=== PATIENT | female | born 1995 | race African-American/Black ===

== ENCOUNTER 2017-07-12 08:09 | Inpatient (IN) | payer OTHER ==
[2017-07-12] MEDS ORDERED: Penicillin G Potassium IV* 5,000,000 UNITS in NS 0.9% 100 ML* 100 ML IVPB ONE ×2 (08:41→12:00)
[2017-07-12 09:05] LABS: ABS Basophils 0 10^3/ul (0-0.2); ABS Eosinophils 0.1 10^3/ul (0-0.6); ABS Neutrophils 7.5 10^3/ul (1.5-7.7); ABS Nucleated RBC 0 10^3/ul; Hematocrit 37 % (35-47); Hemoglobin 12.7 g/dl (12.0-16.0); Lymphocyte % 18.4 % (25-47); Mean Corpuscular HGB Conc 34 g/dl (31-36); Mean Corpuscular Hemoglobin 32 pg (27-31); Mean Corpuscular Volume 93 fL (80-97); Mean Platelet Volume 8 um3 (7.4-10.4); Nucleated Red Blood Cells % 0; Platelet Count 152 10^3/ul (150-450); Red Blood Count 3.95 10^6/ul (4.0-5.4); Red Cell Distribution Width 13 % (10.5-15); White Blood Count 10.6 10^3/ul (3.5-10.8)
[2017-07-12] MEDS ORDERED: Dinoprostone* 10 MG VAG.SUPP VAGINAL ONE ×2 (09:32→22:33)
[2017-07-12] MEDS ORDERED: Nalbuphine* 20 MG/ML 1 ML VIAL IV PRN (22:34)
[2017-07-12] MEDS ORDERED: Promethazine INJ(RESTRICTED)* 25 MG/ML 1 ML VIAL IV PRN (22:36)
[2017-07-13] MEDS ORDERED: Misoprostol TAB* 100 MCG ONE ×2 (12:35→17:48)
[2017-07-13] MEDS ORDERED: Misoprostol TAB* 100 MCG VAGINAL ONE (17:44)
[2017-07-14] MEDS ORDERED: Oxytocin in LR* 20 UNITS/1,000 ML BAG IVPB SCH (01:00)
[2017-07-14] MEDS ORDERED: ceFOXitin 2 GM IVPREMIX* 2 GM/50 ML BAG ONE (08:06)
[2017-07-14] MEDS ORDERED: Sodium Citrate/Citric Acid* 15 ML UDC ONE (08:06)
[2017-07-14] MEDS ORDERED: Morphine PF AMP (0.5MG/ML)* 5 MG/10 ML AMP ONE (12:43)
[2017-07-14] MEDS ORDERED: OXYTOCIN* 10 UNITS/ML 1 ML VIAL ONE (12:43)
[2017-07-14] MEDS ORDERED: Dexamethasone IV* 4 MG/ML 1 ML (4 MG) ONE (12:44)
[2017-07-14] MEDS ORDERED: Ondansetron INJ* 2 MG/ML VIAL ONE (12:44)
[2017-07-14] MEDS ORDERED: Phenylephrine IV* 40 MCG/ML 10 ML SYRINGE ONE (12:49)
[2017-07-14] MEDS ORDERED: diPHENhydraMINE IV* 50 MG/ML 1 ml VIAL (BENADRYL) IV PRN (14:24)
[2017-07-14] MEDS ORDERED: oxyCODONE/Acetamin 5/325 MG* TAB PO PRN (14:24)
[2017-07-14] MEDS ORDERED: Nalbuphine* 20 MG/ML 1 ML VIAL IV PRN ×3 (14:24→14:28)
[2017-07-14] MEDS ORDERED: fentaNYL* 50 MCG/ML 2 ML VIAL (100 MCG VIAL) IV PRN (14:24)
[2017-07-14] MEDS ORDERED: Acetaminophen IV 1GM/100ML * 1,000 MG/100 ML VIAL IVPB ONE (14:24)
[2017-07-14] MEDS ORDERED: PROCHLORPERAZINE INJ 5 MG/ML 2 ML VIAL IV PRN (14:24)
[2017-07-14] MEDS ORDERED: Naloxone* 0.4 MG/ML 1 ML VIAL IV PRN ×2 (14:24→14:28)
[2017-07-14] MEDS ORDERED: Ondansetron INJ* 2 MG/ML VIAL IV PRN (14:28)
[2017-07-14] MEDS ORDERED: oxyCODONE TAB* 5 MG TAB PO PRN (14:28)
[2017-07-14] MEDS ORDERED: Witch Hazel PAD* JAR TOPICAL PRN (14:47)
[2017-07-14] MEDS ORDERED: Ketorolac INJ* 30 MG/ML 1 ML VIAL IV ONE (15:00)
[2017-07-14] MEDS: Simethicone TAB* 80 MG TAB.CHEW PO SCH ×2 (18:30→21:44)
[2017-07-14] MEDS: Docusate CAP* 100 MG PO SCH (21:44)
[2017-07-14] MEDS: Ketorolac INJ* 30 MG/ML 1 ML VIAL IV SCH (21:45)
[2017-07-14] MEDS ORDERED: Acetaminophen TAB* 325 MG PO PRN (23:00)
[2017-07-15] MEDS: Ketorolac INJ* 30 MG/ML 1 ML VIAL IV SCH ×2 (04:47→05:27)
[2017-07-15] MEDS ORDERED: Ibuprofen TAB* 600 MG ONE (04:55)
[2017-07-15] MEDS: oxyCODONE/Acetamin 5/325 MG* TAB PO PRN ×4 (04:57→20:39)
[2017-07-15] MEDS: Simethicone TAB* 80 MG TAB.CHEW PO SCH ×4 (08:45→20:38)
[2017-07-15] MEDS: Docusate CAP* 100 MG PO SCH ×3 (08:45→20:38)
[2017-07-15] MEDS ORDERED: Ferrous Gluconate TAB* 324 MG TAB PO SCH (09:00)
[2017-07-15 09:16] LABS: Hematocrit 31 % (35-47); Hemoglobin 10.6 g/dl (12.0-16.0); Mean Corpuscular HGB Conc 34 g/dl (31-36); Mean Corpuscular Hemoglobin 32 pg (27-31); Mean Corpuscular Volume 92 fL (80-97); Mean Platelet Volume 8 um3 (7.4-10.4); Platelet Count 171 10^3/ul (150-450); Red Blood Count 3.36 10^6/ul (4.0-5.4); Red Cell Distribution Width 13 % (10.5-15); White Blood Count 19.8 10^3/ul (3.5-10.8)
[2017-07-15 10:11] LABS: ABS Basophils 0.1 10^3/ul (0-0.2); ABS Eosinophils 0.1 10^3/ul (0-0.6); ABS Lymphocytes 2.3 10^3/ul (1.0-4.8); ABS Monocytes 1.7 10^3/ul (0-0.8); ABS Neutrophils 15.6 10^3/ul (1.5-7.7); ABS Nucleated RBC 0 10^3/ul; Eosinophil % 0.4 % (0-6); Lymphocyte % 11.8 % (25-47); Nucleated Red Blood Cells % 0.1
[2017-07-15] MEDS: Ibuprofen TAB* 600 MG PO PRN ×3 (11:16→23:22)
--- NOTE | 2017-07-15 14:24 | OP ---
DATE OF OPERATION: 07/14/17 - ROOM #[id number]-115 DATE OF : [birth year] SURGEON: Samir Ly MD. COREMAKER: Nieves Guy CNM. ANESTHESIOLOGIST: Dr. Gaytan. ANESTHESIA: Spinal. PRE-OP DIAGNOSIS: 41 plus 6 weeks gestation with failed induction of labor. POST-OP DIAGNOSIS: 41 plus 6 weeks gestation with failed induction of labor. OPERATIVE PROCEDURE: Primary low-transverse section. ESTIMATED BLOOD LOSS: 800 cc. IV FLUIDS: 2100 cc lactated Ringer's. URINE OUTPUT: 200 cc. MATERIALS TO LAB: Cord blood. INDICATIONS: This patient was a 21-year-old 1 para 0 who presented 2 days ago at 41 plus 4 weeks gestation for induction of labor. The patient's course had been essentially uncomplicated. She underwent several doses of Cervidil and misoprostol over 48 hours with no significant improvement in her cervical dilation. After the 48 hours was complete, the patient desired to discontinue efforts at induction and proceed with section. She was extensively counseled and consent was signed. FINDINGS: Normal-appearing uterus, fallopian tubes, and ovaries. Delivery was productive of a 9 pound 1 ounce female with Apgars of 8 and 9. COMPLICATIONS: None. DESCRIPTION OF PROCEDURE: The risks, benefits, and alternatives were described to the patient and informed consent was obtained. The patient was taken to the operating room with IV running where spinal anesthesia was induced and found to be adequate. The patient was prepped and draped in the normal sterile fashion in the dorsal supine position with leftward tilt. A Pfannenstiel skin incision was made with a scalpel and this was carried down to the underlying fascia sharply. The fascia was then scored in the midline with the scalpel. The incision was extended using Mancuso scissors. The rectus muscles were dissected off the rectus fascia using blunt and sharp dissection. The rectus muscles were in the midline bluntly. The peritoneum was also entered bluntly. A bladder blade was placed. A bladder flap was created sharply using Metzenbaum scissors. A low transverse uterine incision was made with the scalpel. This was carried down to the amniotic cavity which was productive of clear fluid. The incision was extended with blunt traction. The head was elevated to the level of the incision without difficulty and delivered through the incision. With fundal pressure, the shoulders and body delivered without difficulty. The infant had excellent tone and cried immediately on delivery. The cord was doubly clamped and cut. The infant was then handed to the awaiting band sewer. Cord blood was collected. The placenta then delivered with manual extraction. The uterus was then exteriorized and cleared of all clots and debris. Uterine incision was reapproximated using 0 Polysorb in a running-locked fashion. A second layer of imbricating sutures of 0 Polysorb was also placed with good hemostasis. The posterior cul-de-sac was irrigated with saline. The uterus was then returned to the abdomen, and the incision was reinspected and noted to be hemostatic. The peritoneum was closed with 3-0 Polysorb in a running fashion. The fascia was closed with 0 Polysorb in a running fashion. The skin was then closed with 4-0 Monocryl in a subcuticular stitch. Mastisol and Steri- Strips were placed over the incision which was then covered with a sterile bandage. The patient tolerated the procedure well. Sponge, lap, and needle counts were correct x2. [id number]/[facility] #: [id number] [facility]
[2017-07-15] MEDS ORDERED: Ibuprofen TAB* 600 MG PO PRN (14:47)
[2017-07-16] MEDS: oxyCODONE/Acetamin 5/325 MG* TAB PO PRN ×4 (04:38→20:59)
[2017-07-16] MEDS: Penicillin G Potassium IV* 2,500,000 UNITS in NS 0.9% 100 ML* 100 ML IVPB SCH ×4 (07:57→08:00)
[2017-07-16] MEDS: Simethicone TAB* 80 MG TAB.CHEW PO SCH ×4 (09:21→20:07)
[2017-07-16] MEDS: Ibuprofen TAB* 600 MG PO PRN ×2 (09:22→16:51)
[2017-07-16] MEDS: Docusate CAP* 100 MG PO SCH ×3 (09:22→20:07)
[2017-07-16 10:57] LABS: Hematocrit 32 % (35-47); Hemoglobin 10.7 g/dl (12.0-16.0); Mean Corpuscular HGB Conc 34 g/dl (31-36); Mean Corpuscular Hemoglobin 32 pg (27-31); Mean Corpuscular Volume 93 fL (80-97); Mean Platelet Volume 8 um3 (7.4-10.4); Platelet Count 187 10^3/ul (150-450); Red Cell Distribution Width 13 % (10.5-15); White Blood Count 15.1 10^3/ul (3.5-10.8)
[2017-07-16 11:01] LABS: ABS Basophils 0 10^3/ul (0-0.2); ABS Eosinophils 0 10^3/ul (0-0.6); ABS Lymphocytes 0.7 10^3/ul (1.0-4.8); ABS Monocytes 1.6 10^3/ul (0-0.8); ABS Neutrophils 12.6 10^3/ul (1.5-7.7); ABS Nucleated RBC 0 10^3/ul; Eosinophil % 0.1 % (0-6); Lymphocyte % 4.9 % (25-47); Nucleated Red Blood Cells % 0
[2017-07-17] MEDS: Ibuprofen TAB* 600 MG PO PRN ×2 (00:45→11:27)
[2017-07-17] MEDS: oxyCODONE/Acetamin 5/325 MG* TAB PO PRN (05:50)
[2017-07-17 06:43] LABS: Urine Appearance Clear; Urine Blood 3+ (Negative); Urine Color Yellow; Urine Ketones Negative (Negative); Urine Protein Negative (Negative); Urine Specific Gravity 1.008 (1.010-1.030); Urine Urobilinogen Negative (Negative)
[2017-07-17] MEDS: Docusate CAP* 100 MG PO SCH (09:01)
[2017-07-17] MEDS: Simethicone TAB* 80 MG TAB.CHEW PO SCH (09:01)
[2017-07-17 10:01] VITALS: BP 99/62
== END 2017-07-17 12:21 | disposition home or self-care (01) | DRG 540 ==
LOC: MCHOBOUT 08:09 → MCHOB 08:51
PROVIDERS: ADMIT Midwife; ATTEND Midwife
PROC: 3E033VJ Introduction of Other Hormone into Peripheral Vein, Percutaneous Approach (ICD-10-PCS; 2017-07-14)
PROC: 10D00Z1 Extraction of Products of Conception, Low, Open Approach (ICD-10-PCS; principal; 2017-07-14 13:03)
DX: O61.0 Failed medical induction of labor (principal); O48.0 Post-term pregnancy; Z3A.42 42 weeks gestation of pregnancy; O99.824 Streptococcus B carrier state complicating childbirth; Z37.0 Single live birth
CPT/HCPCS: 36415; 81003; 81015; 85025; 86850; 86900; 86901; A9270-GY; J0694; J1100; J1885; J2300; J2405; J2540; J2550; J2590; S0191

== ENCOUNTER 2019-01-14 17:49 | Emergency (ER) | payer OTHER ==
[2019-01-14 18:49] VITALS: BP 119/86
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
== END 2019-01-14 20:24 | disposition home or self-care (01) ==
LOC: UCEAST 17:49
DX: R10.32 Left lower quadrant pain (principal); Z87.891 Personal history of nicotine dependence
CPT/HCPCS: 99211; G0463

== ENCOUNTER 2019-01-16 04:37 | Emergency (ER) | payer MEDICAID, OTHER ==
--- OUTSIDE RECORDS SUMMARY | 2019-01-16 04:49 | XMS REPORT | Continuity of Care Document ---
:1995 External Reference #:[id number] Author Name Samir Ly MD Address [address] [place] [address] Care Team Providers Name Role Phone Brianna Bhatia MD Care Team Information [employer] Unavailable Payers Date Identification Numbers Payment Provider Subscriber Policy Number: [id number] Medicaid [place] Princess Donaldson PayID: [id number] [address] [place] [id number] Problems Active Problems Provider Date H/O: section Nieves Guy CNM Onset: 07/14/2017 Resolved Problems Primigravida Nieves Guy CNM Onset: 11/22/2016 Resolved: 07/14/2017 Family History Date Family Member(s) Observation Comments Father A&W Mother A&W Children 1 First Daughter A&W First Brother A&W Second Brother A&W First Sister A&W Second Sister A&W Third Sister A&W Fourth Sister A&W Fifth Sister A&W Sixth Sister A&W Paternal Grandfather Unknown Paternal Grandmother Unknown Maternal Grandfather due to Cancer () Maternal Grandmother A&W Social History Type Date Description Comments Sex Unknown Education Highest level completed, 12th grade Marital Status Single Lives With Boyfriend Lives With Daughter Diet Healthy, Well Balanced Pets 1 cat Occupation [employer] Environmental Hazards Not exposed to any environmental hazards Environmental Hazards Low Lead Risk Cigarette Use Former Cigarette Smoker 3-5/day x 2 years. Quit for ETOH Use Denies alcohol use Recreational Drug Use Denies Drug Use Tobacco Use Start: Unknown Patient is a former End: Unknown smoker Smoking Status Reviewed: 01/15/19 Patient is a former smoker Exercise Type/Frequency Exercises regularly Seat Belt/Car Seat Always uses seat belt Currently Active Patient is currently sexually active Contraceptive Methods None STD's No STD History Allergies, Adverse Reactions, Alerts Description No Known Drug Allergies Medications History Medications SIG Qnty Indications Ordering Provider Date Norethindrone take 1 tab by 84tabs Samir Ly MD 09/15/2018 - Acetate/Ethinyl mouth every 01/07/2019 Estradiol/Ferrous day Fumarate 1-20mg-mcg Tablets History Medications Mirena (52 MG) Samir Ly MD 01/14/2018 - 20mcg/24HR 09/15/2018 IUD Breast Pump double electric Abdifatah Jeong 07/18/2017 - Misc breast pump for CNM 01/06/2018 lactating mother Multivitamin ok to substitute pnv Unknown - Plus Dha + dha covered by pt 01/14/2019 27-0.8-250mg insurance. 1 tablet Capsules by mouth daily Vital Signs Date Vital Result Comment 01/15/2019 12:54pm BP Systolic 112 mmHg BP Diastolic 74 mmHg Height 61 inches 5'1" Weight 126.00 lb BMI (Body Mass Index) 23.8 kg/m2 Last Menstrual Period [id number] 1 Parity 1 09/15/2018 1:22pm BP Systolic 108 mmHg BP Diastolic 72 mmHg Height 61 inches 5'1" Weight 135.00 lb BMI (Body Mass Index) 25.5 kg/m2 1 Parity 1 01/14/2018 2:51pm BP Systolic 116 mmHg BP Diastolic 74 mmHg Height 61 inches 5'1" Weight 128.00 lb BMI (Body Mass Index) 24.2 kg/m2 1 Parity 1 08/21/2017 2:38pm BP Systolic 106 mmHg BP Diastolic 68 mmHg Height 61 inches 5'1" Weight 147.00 lb BMI (Body Mass Index) 27.8 kg/m2 1 Parity 1 07/22/2017 11:10am BP Systolic 112 mmHg BP Diastolic 78 mmHg Body Temperature 98.2 F Height 61 inches 5'1" Weight 161.00 lb BMI (Body Mass Index) 30.4 kg/m2 Last Menstrual Period [id number] 1 Parity 1 11/22/2016 1:25pm BP Systolic 116 mmHg BP Diastolic 64 mmHg Height 61 inches 5'1" Weight 130.00 lb BMI (Body Mass Index) 24.6 kg/m2 Last Menstrual Period [id number] 1 Parity 0 Results Test Date Facility Test Result H/L Range Note Laboratory test [facility] Genital For GRP SEE RESULT 1 finding [address] [place] [address] B Strep Only BELOW [phone] Glucose Tolerance [facility] GTT 3HR (SEE NOTE) N 2 3HR Gestational 7 [place] [address] Gestational [phone] Laboratory test [facility] Glucose 1 HR 148 mg/dL N 70-160 3 finding [address] [place] [address] Post Prandial [phone] CBC With No Diff [facility] White Blood 11.8 High 3.5-10.8 7 [place] [address] Count 10^3/uL [phone] Red Blood Count 4.13 10^6/uL N 4.0-5.4 Hemoglobin 12.9 g/dL N 12.0-16.0 Hematocrit 39 % N 35-47 Mean Corpuscular Volume 94 fL N 80-97 Mean Corpuscular Hemoglobin 31 pg N 27-31 Mean Corpuscular HGB Conc 33 g/dL N 31-36 Red Cell Distribution Width 13 % N 10.5-15 Platelet Count 194 10^3/uL N 150-450 Mean Platelet Volume 8 um3 N 7.4-10.4 Hemoglobinopathy 04/11/2017 [facility] Erythrocyte Count 4.06 Mill/uL 3.80- 5.10 Evaluation Hemoglobin 13.2 g/dL 11.7-15.5 Hematocrit 40.5 % 35.0-45.0 MCV 99.8 FL 80.0-100.0 MCH 32.5 pg 27.0-33.0 RDW 14.3 % 11.0-15.0 Hemoglobin A 97.2 % >96.0 Hemoglobin F 0.0 % <2.0 Hemoglobin A2 2.8 % 1.8-3.5 Interpretation see note 4 Sequential Integreated SCRN 2 [place] 01/16/2017 [facility] Interpretation SEE BELOW 5 Risk For Ontd 1:3200 Age Risk Down Syndrome 1:1100 SUE Down Syndrome Risk <1:5000 <1:270 SUE Trisomy 18 Risk <1:5000 <1:100 Calculated Gestational Age 16.6 6 Afp,Serum 62.8 ng/mL Afp Mom 1.42 7 HCG,Serum 34.5 IU/mL HCG Mom 0.85 Estriol,Free 0.69 ng/mL Estriol Mom 0.69 Inhibin A,Dimeric 216 pg/mL Inhibin A Mom 1.23 Jules-A 1518.2 ng/mL 8 Jules-A Mom 0.97 NT Mom 0.95 9 Referring Physician Name HENRY Referring Physician Phone [phone] Referring Physician Npi [id number] Specimen # From Part 1 [id number] Date Of 1995 Collection Date 01/16/2017 Maternal Weight 130 lbs Est'd Date Of Delivery 06/28/2017 Nuchal Translucency 1.4 mm Cygnet Rump Length 65.0 mm Ultrasound Date 12/20/2016 Nasal Bone NOT ASSESSED Mother's Ethnic Origin 10 Insulin Depend Diabetic NO Repeat Specimen NO Number Of Fetuses 1 HX Of Neural Tube Defects NO Twin B Nasal Bone NG 11 Sequential Integrated SCRN 1 [place] 12/20/2016 [facility] Interpretation SEE BELOW 12 Age Risk Down Syndrome 1:810 SUE Down Syndrome Risk IN PROCESS <1:50 SUE Trisomy 18 Risk IN PROCESS <1:100 Calculated Gestational Age 12.7 13 Jules-A 1518.2 ng/mL 14 Jules-A Mom 0.97 HCG,Serum 111.3 IU/mL HCG Mom 1.16 NT Mom 0.95 15 Referring Physician Name HENRY 16 Referring Physician Phone NG 17 Referring Physician Npi NG 18 Date Of 1995 19 Collection Date 12/20/2016 20 Maternal Weight 130 lbs 21 Est'd Date Of Delivery 06/28/2017 22 SABAS Determined By US 23 Mother's Ethnic Origin 24 Number Of Fetuses 1 25 Insulin Depend Diabetic NO 26 Repeat Specimen NO 27 HX Of Neural Tube Defects NO 28 Prev Down Synd NO 29 Donor Egg NO 30 Donor Age:Egg Retrieval NG 31 Ultrasound Date 12/20/2016 32 Behavioral Health Associate's Name LEE ANN 33 NTQR Behavioral Health Associate Id# [id number] NTQR Location Id# [id number] NTQR Reading Phys Id# [id number] FMF Behavioral Health Associate Id# NG 37 Cygnet Rump Length 65.0 mm 38 Nuchal Translucency 1.4 mm 39 Nasal Bone NOT MEASURED 40 If Twins NG 41 Twin B CRL NG mm 42 Twin B NT NG mm 43 Twin B Nasal Bone NG 44 Urine Culture And 11/22/2016 [facility] Urine Culture SEE RESULT 45 [place] [address] BELOW [phone] GC/Chlamydia Dna 11/22/2016 [facility] Chlamydia [place] [address] trachomatis [phone] Rna Neisseria gonorrhoeae (GC) Rna Negative N Negative Laboratory test 11/22/2016 [facility] Cytology SEE RESULT 46 [place] [address] BELOW [phone] HIV 1/2 Ag & AB 11/22/2016 [facility] HIV-1/-2 Negative N Negative 47 [place] [address] Screen, S [phone] Varicella 11/22/2016 [facility] Varicella-Zos Positive N 48 [place] [address] ter IgG [phone] Antibody Varicella IgG Antibody Index 2.1 N 49 Toxoplasma Igg & 11/22/2016 [facility] Toxoplasma IgG [place] [address] Antibody [phone] Toxoplasma IgG Antibody Index 243 IU/mL N 50 Toxoplasma IgM Antibody Negative N Negative 51 Lead 11/22/2016 [facility] Lead <1.0 g/dL N 0.0-4.9 52 [place] [address] [phone] Type And 11/22/2016 [facility] Patient [place] [address] Type [phone] Antibody Screen NEGATIVE N CBC With No 11/22/2016 [facility] White Blood 15.7 10^3/uL High 3.5-10.8 [place] [address] Count [phone] Red Blood Count 4.31 10^6/uL N 4.0-5.4 Hemoglobin 13.0 g/dL N 12.0-16.0 Hematocrit 39 % N 35-47 Mean Corpuscular Volume 91 fL N 80-97 Mean Corpuscular Hemoglobin 30 pg N 27-31 Mean Corpuscular HGB Conc 33 g/dL N 31-36 Red Cell Distribution Width 13 % N 10.5-15 Platelet Count 299 10^3/uL N 150-450 Mean Platelet Volume 8 um3 N 7.4-10.4 PNL No 11/22/2016 [facility] Rubella Screen Immune IU/ mL N Immune 53 [place] [address] [phone] Hemoglobin A1c 4.2 % N Less than 6.0 54 Hepatitis B Surface Ag Nonreactive N Nonreactive 55 Syphillis Igg W/Reflex RPR Nonreactive N Nonreactive 56 1 SEE RESULT BELOW Name: PRINCESS DARIAN : [address]: Diamond Pendleton CM Acct: [id number] Unit: [id number] AGE: 21 Location: [facility] Re06/04/17 SEX: F Status: REG REF SPEC: [id number] RAN: 06/04/17-1932 [facility] DR: Diamond Pendleton CM REQ: [id number] RECD: 06/04/17 STATUS: COMP _ SOURCE: MELI/VAG/RE SPDESC: ORDERED: Quiana B Lillian Scrn COMMENTS: [id number] QUERIES: Is Patient Penicillin Allergic? N Is patient penicillin allergic and/or sensitivities needed? N Provider Requisition # C77#[id number]_ Procedure Result Reported Site Group B Strep Culture Screen Final 06/06/17- 1125 ML Group B Strep Screen Positive Organism 1 STREP GROUP B Susceptibility testing of penicillins and other B-lactams approved by FDA for treatment of Streptococcus pyogenes (Group A Strep) and Streptococcus agalactiae (Group B Strep) is not necessary for clinical purposes and need not be done routinely, since as with vancomycin, resistant strains have not been recognized. (CLSI B436-L99;p.66) Positive isolates will be saved for one week. Please call the Microbiology Laboratory if further susceptibility testing is needed. * ML - MAIN LAB ([facility]) . END OF REPORT * ML=Testing performed at Main Lab DEPARTMENT OF PATHOLOGY, [address] [place] [address] Wiley Gibbs M.D. Director [facility] # [id number] 2 GLU Fast 77 Col: 04/19/17 0853 GLU 1HR 169 Col: 04/19/17 0853 GLU 2HR 106 Col: 04/19/17 0953 GLU 3HR 119 Col: 04/19/17 1053 GLU Interp Col: 04/19/17 0853 GTT normal ranges for obstetrics per the [place] [employer] (ACOG).Based on 100 gm glucose load: Fasting <95 mg/dl 1hr <180 mg/dl 2hr <155 mg/dl 3hr <140 mg/dl 3 [id number] NORMAL PATTERN By high-performance liquid chromatography (HPLC), there is a normal pattern of hemoglobins and normal levels of HbA2 and HbF are present. No variant hemoglobins are observed. This is consistent with A/A phenotype. If iron deficiency coexists with beta thalassemia trait HbA2 may be in the normal range. Rare variant hemoglobins have been known to co-elute with hemoglobin A by high-performance liquid chroma- tography. If clinically indicated, Thalassemia and Hemoglobinopathy comprehensive is available (Test code 31207C[93889]). 5 SCREEN NEGATIVE FOR OPEN NTD, DOWN SYNDROME AND TRISOMY 18. NT WAS USED IN THE RISK CALCULATIONS. 6 Cygnet rump length (CRL) was used to calculate gestational age. SABAS, if provided, was not used for gestational age dating. 7 Reference Range: <2.50 IDD <1.90 TWINS <4.00 TWINS IDD <3.50 TRIPLETS <4.50 8 This test was performed using a kit that has not been cleared or approved by the FDA. The analytical performance characteristics of this test have been determined by [employer] [facility]. This test should not be used for diagnosis without confirmation by other medically established means. 9 The Sequential Integrated Screen combines JULES-A and hCG with or without a nuchal translucency measurement in the first trimester with AFP, unconjugated estriol, intact hCG and Inhibin A in the second trimester. This provides a useful screening test for detection of open neural tube defects, Down syndrome and Trisomy 18. It should be noted that normal results can never guarantee the of a normal baby and that 2 to 3 percent of newborns have some type of physical or mental defect, many of which are undetectable through any known diagnostic technique. Interpretation reviewed by: Jony Stearns, Ph.D., [facility] This is a screening test, not a diagnostic test. This risk assessment is based on demographic data provided by the ordering physician. Please notify the laboratory promptly if any data are incorrect. If you have questions concerning this report: For clinical consultation, call ; For technical questions, call ext [phone]; For recalculations, fax to [phone]. 10 11 For additional information, please refer to [email or web address].PrivacyStar/faq/[email or web address] (This link is provided for informational/educational purposes only.) 12 This patient's risk does not exceed the first trimester cut-off for Down syndrome or trisomy 18. The integrated screen calculation is awaiting the second trimester sample. NT WAS USED IN THE RISK CALCULATIONS. Thank you for submitting this patient's Part 1 specimen. These first trimester values will be incorporated with the second trimester values as part of the integrated testing process. Please submit the Part 2 specimen between 01/05/2017-03/01/2017 (15.0 and 22.9 weeks gestation) with 01/05/2017-01/18/2017 (15.0 - 16.9 weeks gestation) being optimal. When submitting Part 2, please include the following Specimen # from Part 1: [id number] 13 Cygnet rump length (CRL) was used to calculate gestational age. SABAS, if provided, was not used for gestational age dating. 14 This test was performed using a kit that has not been cleared or approved by the FDA. The analytical performance characteristics of this test have been determined by [employer] [facility]. This test should not be used for diagnosis without confirmation by other medically established means. 15 Interpretation reviewed by: Geetha Zhang, Ph.D., [facility]. This is a screening test, not a diagnostic test. This risk assessment is based on demographic data provided by the ordering physician. Please notify the laboratory promptly if any data are incorrect. If you have questions concerning this report: For clinical consultation, call ; For technical questions, call ext [phone]; For recalculations, fax to . For additional information, please refer to http://[email or web address].ev-social/faq/FAQ89 (This link is being provided for informational/educational purposes only.) 16 For additional information, please refer to [email or web address].ev-[email or web address]/faq/FAQ89 (This link is being provided for informational/educational purposes only.) 17 For additional information, please refer to http://[employer]ark[employer]/faq/[email or web address] (This link is being provided for informational/educational purposes only.) 18 For additional information, please refer to http://[employer]ark[employer]/faq/[email or web address] (This link is being provided for informational/educational purposes only.) 19 For additional information, please refer to http://[employer]/faq/[email or web address] (This link is being provided for informational/educational purposes only.) 20 For additional information, please refer to http://[employer]/faq/FAQ89 (This link is being provided for informational/educational purposes only.) 21 For additional information, please refer to http://[employer]/faq/FAQ89 (This link is being provided for informational/educational purposes only.) 22 For additional information, please refer to http://[employer]ark[employer]/faq/[email or web address] (This link is being provided for informational/educational purposes only.) 23 For additional information, please refer to http://[employer]ark[employer]/faq/[email or web address] (This link is being provided for informational/educational purposes only.) 24 For additional information, please refer to http://[employer]/faq/FAQ89 (This link is being provided for informational/educational purposes only.) 25 For additional information, please refer to http://[employer]ark[employer]/faq/FAQ89 (This link is being provided for informational/educational purposes only.) 26 For additional information, please refer to http://Bark[employer]u/faq/FAQ89 (This link is being provided for informational/educational purposes only.) 27 For additional information, please refer to http://Bark[employer]u/faq/FAQ89 (This link is being provided for informational/educational purposes only.) 28 For additional information, please refer to http://Bark[employer]u/faq/FAQ89 (This link is being provided for informational/educational purposes only.) 29 For additional information, please refer to http://Bark[employer]/faq/FAQ89 (This link is being provided for informational/educational purposes only.) 30 For additional information, please refer to http://Bark[employer]u/faq/FAQ89 (This link is being provided for informational/educational purposes only.) 31 For additional information, please refer to http://Bark[employer]u/faq/FAQ89 (This link is being provided for informational/educational purposes only.) 32 For additional information, please refer to http://Bark[employer]u/faq/FAQ89 (This link is being provided for informational/educational purposes only.) 33 For additional information, please refer to http://Barkibu/faq/FAQ89 (This link is being provided for informational/educational purposes only.) 34 For additional information, please refer to http://Bark[employer]u/faq/FAQ89 (This link is being provided for informational/educational purposes only.) 35 For additional information, please refer to http://Bark[employer]u/faq/FAQ89 (This link is being provided for informational/educational purposes only.) 36 For additional information, please refer to http://Bark[employer]u/faq/FAQ89 (This link is being provided for informational/educational purposes only.) 37 For additional information, please refer to http://Bark[employer]u/faq/FAQ89 (This link is being provided for informational/educational purposes only.) 38 For additional information, please refer to http://Bark[employer]u/faq/FAQ89 (This link is being provided for informational/educational purposes only.) 39 For additional information, please refer to http://Bark[employer]u/faq/FAQ89 (This link is being provided for informational/educational purposes only.) 40 For additional information, please refer to http://Bark[employer]u/faq/FAQ89 (This link is being provided for informational/educational purposes only.) 41 For additional information, please refer to http://Bark[employer]u/faq/FAQ89 (This link is being provided for informational/educational purposes only.) 42 For additional information, please refer to http://Barkibu/faq/FAQ89 (This link is being provided for informational/educational purposes only.) 43 For additional information, please refer to http://Barkibu/faq/FAQ89 (This link is being provided for informational/educational purposes only.) 44 For additional information, please refer to http://Barkibu/faq/FAQ89 (This link is being provided for informational/educational purposes only.) 45 SEE RESULT BELOW Name: PRINCESS DARIAN : [address]: Nieves Guy CNM Acct: [id number] Unit: [id number] AGE: 20 Location: [facility] Re11/22/16 SEX: F Status: REG REF SPEC: [id number] RAN: 11/22/16-1336 [facility] [address]: Nieves Guy CNM REQ: [id number] RECD: 11/22/166986 STATUS: COMP _ S[facility]: Urine Culture COMMENTS: [id number] Urine Source: Random Procedure Result Reported Site Urine Culture Final 11/23/16- 1632 ML No growth of clinically significant organisms * ML - MAIN LAB ([facility]) . END OF REPORT * ML=Testing performed at Main Lab DEPARTMENT OF PATHOLOGY, [address] [place] [address] Wiley Gibbs M.D. Director [facility] # [id number] 46 SEE RESULT BELOW Name: PRINCESS ALYSSA DONALDSONB: [address]: Nieves Guy [facility] Acct: [id number] Unit: [id number] AGE: 20 Location: [facility] Re11/22/16 SEX: F Status: REG REF SPEC: [id number] RAN: 11/22/16-[address]: Nieves Guy [facility] REQ: [id number] RECD: 11/22/16 STATUS: SOUT _ ORDERED: TP IMAGE ANAL COMMENTS: [id number] FINAL DIAGNOSIS Negative for Intraepithelial lesion or Malignancy A. Ectocervical/Endocervical Specimen Adequacy: Satisfactory of evaluation Transformation zone component identified Patient Information: HPV: Thin Layer Pap Test w/reflex to high risk HPV RNA testing when ASCUS Actual Specimen Date: 11/22/16 Last Menstrual Date: 09/09/16 ?: Y Previous Abnormal Pap Smears?:N Signed (signature on file) KO Drew (ASCP) 11/23 1432 This Pap test was evaluated with the assistance of the [employer] Resumep Test Imaging System. Due to cytologic findings at the health manager microscope, comprehensive manual rescreening by a Carrot Tier may be required. The Pap Smear is a screening test designed to aid in the detection of premalignant and malignant conditions of the uterine cervix. It is not a diagnostic procedure and should not be used as the sole means of detecting cervical cancer. Both false- positive and false- negative reports do occur. Depending on your risk status, a Pap smear should be obtained and evaluated every 1-3 years. END OF REPORT * ML=Testing performed at Main Lab DEPARTMENT OF PATHOLOGY, [address] [place] [address] Wiley Gibbs M.D. Director [facility] # [id number] 47 Negative result does not rule out HIV infection. If acute HIV infection is suspected in a high-risk individual, submit plasma specimen for HIV-1 RNA quantification test (HIVDQ) and/or HIV-2 DNA/RNA test (FHV2Q). Test Performed by: [facility] [place] [address] 48 Results suggest response to immunization or prior exposure to the virus. REFERENCE VALUE Vaccinated: Positive (>=1.1 AI) Unvaccinated: Negative (<=0.8 AI) 49 Test Performed by: [facility] [place] [address] 50 REFERENCE VALUE <=9 IU/mL (Negative) 10-11 IU/mL (Equivocal) >=12 IU/mL (Positive) Test Performed by: [facility] [place] [address] 51 No IgM antibodies to T. gondii detected. Results may be negative up to 7 days following infection. 52 ADDITIONAL INFORMATION Testing performed by Inductively Coupled Plasma-Mass Spectrometry (ICP-MS). This test was developed and its performance characteristics determined by [facility] in a manner consistent with CLIA requirements. This test has not been cleared or approved by the .S. Food and Drug Administration. 53 [id number] 54 Therapeutic target for the treatment of diabetes Mellitus patients is <7% HBA1C, and in selective patients <6.0%.Please refer to [place] [employer] Diabetic care guidelines for further information. 55 [id number] 56 Warning: A positive result is not useful for establishing a diagnosis of syphilis. In most situations, such a result may reflect a prior treated infection; a negative result can exclude a diagnosis of syphilis except for incubating or early primary disease. Procedures Date Code Description Status 01/15/2019 68420 Insertion, Non-Biodegradable Drug Delivery Implant Completed 09/15/2018 38439 Remove Intrauterine Device Completed 01/14/2018 51775 Insert Intrauterine Device Completed 07/14/2017 54387 Delivery Only Completed 07/14/2017 82704 Delivery Routine Completed 07/09/2017 76654 Echography Uterus Limited Completed 07/09/2017 59262 Non-Stress Test Completed 02/13/2017 71125 Echography Uterus Complete Completed 12/20/2016 20843 Nuchal Translucency Ultrasound /First Gestation Completed 11/22/2016 05407 OB Ultrasound First Trimester Completed
[2019-01-16] MEDS ORDERED: NS 0.9% 1000 ML** 1,000 ML IV ONE (06:01)
[2019-01-16] MEDS ORDERED: Ketorolac INJ* 30 MG/ML 1 ML VIAL IV PUSH ONE (06:01)
[2019-01-16] MEDS ORDERED: Ondansetron INJ* 2 MG/ML VIAL IV ONE (06:01)
[2019-01-16 06:02] LABS: ABS Eosinophils 0.1 10^3/ul (0-0.6); ABS Monocytes 0.5 10^3/ul (0-0.8); ABS Neutrophils 5.5 10^3/ul (1.5-7.7); Hematocrit 41 % (35-47); Hemoglobin 14.1 g/dL (12.0-16.0); Lymphocyte % 24.7 %; Mean Corpuscular HGB Conc 34 g/dL (31-36); Mean Corpuscular Hemoglobin 32 pg (27-31); Mean Corpuscular Volume 92 fL (80-97); Mean Platelet Volume 7.3 fL (7.4-10.4); Nucleated Red Blood Cells % 0.1; Platelet Count 272 10^3/uL (150-450); Red Blood Count 4.47 10^6 /uL (3.70-4.87); Red Cell Distribution Width 12 % (10-15)
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
[2019-01-16 06:27] LABS: ALT 8 U/L (7-52); AST 12 U/L (13-39); Albumin 4.2 g/dL (3.2-5.2); Albumin/Globulin Ratio 1.4 (1-3); Alkaline Phosphatase 71 U/L (34-104); Anion Gap 6 mmol/L (2-11); Blood Urea Nitrogen 14 mg/dL (6-24); CO2 Carbon Dioxide 24 mmol/L (22-32); Calcium 9.4 mg/dL (8.6-10.3); Chloride 107 mmol/L (101-111); EGFR African American 123.4 (>60); Globulin 2.9 g/dL (2-4); Glucose 105 mg/dL (70-100); Indirect Bilirubin 0.3 mg/dL (0.3-1.0); Potassium 4.3 mmol/L (3.5-5.0); Sodium 137 mmol/L (135-145); Total Protein 7.1 g/dL (6.4-8.9)
[2019-01-16 06:30] LABS: HCG Pregnancy < 0.60 mIU/mL
[2019-01-16] MEDS ORDERED: Iohexol 300* (CONTRAST) 10 ML SDV IV ONE (07:11)
[2019-01-16] MEDS ORDERED: cefTRIAXone VIAL(*) 250 MG VIAL IM ONE (09:30)
[2019-01-16] MEDS ORDERED: Azithromycin TAB* 250 MG PO ONE (09:30)
[2019-01-16] MEDS ORDERED: Lidocaine 1% MPF ** 5 ML VIAL IM ONE (09:30)
[2019-01-16 10:01] VITALS: BP 112/67
--- NOTE | 2019-01-17 15:49 | PN ---
Progress Note - Progress Note Date of Service: 01/16/19 Note: Vaginal culture growing gardnerella. Attempted to call pt. today at 1546 with no answer. Message left to return call. Rx for flagyl sent to pharmacy. Will send letter to return call.
[2019-01-19 12:59] LABS: Neisseria gonorrhoeae (GC) RNA Negative (Negative)
[2019-01-19 13:24] LABS: Trichomonas vaginalis Result Negative (Negative)
== END 2019-01-16 10:00 | disposition home or self-care (01) ==
LOC: ED 04:37
DX: K52.9 Noninfective gastroenteritis and colitis, unspecified (principal); Z72.51 High risk heterosexual behavior; F17.210 Nicotine dependence, cigarettes, uncomplicated
CPT/HCPCS: 36415; 74177; 80048; 80076; 83690; 84702; 85025; 87480; 87491; 87510; 87591; 87661; 96361; 96372; 96374; 96375; 99283; A9270-GY; J0696; J1885; J2405; Q9967